=== PATIENT | male | born 1955 | race Caucasian/White ===

== ENCOUNTER 2022-05-04 13:46 | Emergency (ER) | payer MEDICARE, MEDICAID, SELFPAY ==
--- NOTE | ~2022-05-04 | CT_ITS ---
EXAMINATION: CT ABDOMEN AND PELVIS WITHOUT CONTRAST CLINICAL INFORMATION: Assess for splenic injury. Left shoulder pain COMPARISON: None TECHNIQUE: Multidetector volumetric imaging was performed from the superior aspect of the liver through the pubic symphysis. Sagittal and coronal reformatted images were obtained on the [employer] [facility] [employer] workstation. This CT examination was performed using dose optimization techniques as appropriate, variously including the following: *Automated exposure control *Adjustment of mA and/or kV according to patient size (this includes techniques or standardized protocols for targeted exams where dose is matched to indication/reason for exam; i.e. extremities or head) *Use of iterative reconstruction technique DLP: 711 mGy-cm FINDINGS: LUNG BASES: There is platelike atelectasis right lower lobe. Heart size is normal. LIVER, GALLBLADDER, AND BILIARY TREE: The liver is normal in size, shape, and attenuation. No focal hepatic lesion or biliary ductal dilatation is present. There are multiple radiopaque gallstones without wall thickening. PANCREAS: Unremarkable. SPLEEN: Unremarkable. ADRENAL GLANDS: Unremarkable. KIDNEYS AND URETERS: The kidneys are normal in size, shape, and attenuation. No hydronephrosis, hydroureter, or calculi seen. No perinephric stranding. BLADDER: The bladder is distended with slight higher attenuation of urine. No bladder wall thickening seen GASTROINTESTINAL TRACT: Scattered stool and gas is seen throughout the colon most prominent in the transverse and right colon. The small bowel loops are unremarkable. Appendix is normal caliber. ABDOMINAL WALL: No significant hernia is appreciated. LYMPH NODES: Normal. VASCULAR: Unremarkable. PELVIC VISCERA: The prostate gland is normal size with punctate central gland calcification. No free fluid. No abnormal pelvic or inguinal lymph nodes seen. Prominent bilateral inguinal canals containing fat is noted. OSSEOUS STRUCTURES: There are degenerative disc changes with vacuum disc phenomena T12-L1 and T11-T12 disc levels. Moderate bilateral L5-S1 and L4-L5 facet joint arthropathy. No aggressive lytic or sclerotic process seen. CT/CT abdomen pelvis wo IV con IMPRESSION: 1. No acute intra-abdominal process seen. 2. Cholelithiasis without wall thickening. Moderate constipation. No retroperitoneal or intraperitoneal hematoma or bleed. Fleischner guidelines were followed.
--- NOTE | ~2022-05-04 | XR_ITS ---
EXAMINATION: XR CHEST CLINICAL INFORMATION: Chest pain COMPARISON: None TECHNIQUE: 2 views of the chest were obtained. FINDINGS: The lungs are well-expanded and clear of acute pneumonic process. The heart size and pulmonary vascularity is normal. No gross bony abnormality seen. XR/XR chest 2V IMPRESSION: Unremarkable chest exam.
[2022-05-04 13:52] VITALS: BP 142/81; PULSE 110; RESP 18; TEMP 37.2; O2SAT 96; BMI 33.4
--- NOTE | 2022-05-04 13:56 | ECG_ITS ---
Test Reason : chest pain Blood Pressure : / mmHG Vent. Rate : 106 BPM Atrial Rate : 106 BPM P-R Int : 146 ms QRS Dur : 090 ms QT Int : 342 ms P-R-T Axes : 050 -53 089 degrees QTc Int : 454 ms Sinus tachycardia Left axis deviation Inferior infarct , age undetermined Cannot rule out Anterior infarct , age undetermined Abnormal ECG No previous ECGs available Referred By: Johnson Lemos Electronically Signed By:Michael Villa
--- NOTE | 2022-05-04 13:58 | ED.CHESTPAIN ---
HPI - Chest Pain General Chief Complaint: Chest Pain <Johnson Lemos MD - Last Filed: 05/04/22 14:04> Stated Complaint: Chest Pain R Arm Pain <Johnson Lemos MD - Last Filed: 05/04/22 14:04> Time Seen by Provider: 05/04/22 14:02 <Johnson Lemos MD - Last Filed: 05/04/22 14:04> Source: patient and old records reviewed <YULISSA Bertrand - Last Filed: 05/04/22 17:10> Mode of arrival: ambulatory <YULISSA Bertrand - Last Filed: 05/04/22 17:10> Limitations: no limitations <YULISSA Bertrand - Last Filed: 05/04/22 17:10> History of Present Illness HPI narrative: 67-year-old male with history of alcohol abuse, tobacco smoker, HTN, HLD, diabetes who presents to the ER for evaluation of substernal, burning and stiff chest pain that started last night at 19:30 and resolved on its own today at 04:00. He states that he often is getting left-sided shoulder pain that radiates under his left armpit and left upper chest. This occurs at nighttime and is worse when he lays on his left side. He denies any shortness of breath or nausea associated with this. He states last night the pain kept him up all most of the night until 04:00 when it resolved spontaneously. He is a poor historian. He states he drinks usually 12 beers per day. Last drink was this morning when he drink 3 beers. On arrival to the ER patient is diaphoretic. He denies any current chest pain. He states the pain is mostly in his shoulder and not his chest. He states he only came to the ER because his uncle convinced him to. <YULISSA Bertrand - Last Filed: 05/04/22 17:10> MD complaint: chest pain <YULISSA Bertrand - Last Filed: 05/04/22 17:10> Onset (ago): hour(s) <YULISSA Bertrand - Last Filed: 05/04/22 17:10> Timing of current episode: now resolved <YULISSA Bertrand - Last Filed: 05/04/22 17:10> Prior episodes: Yes <YULISSA Bertrand - Last Filed: 05/04/22 17:10> Onset: during rest <YULISSA Bertrand - Last Filed: 05/04/22 17:10> Pain location: left chest <YULISSA Bertrand - Last Filed: 05/04/22 17:10> Pain radiation: left arm <YULISSA Bertrand - Last Filed: 05/04/22 17:10> Severity: moderate <YULISSA Bertrand - Last Filed: 05/04/22 17:10> Quality: aching <YULISSA Bertrand - Last Filed: 05/04/22 17:10> Relieving factors: nothing <YULISSA Bertrand - Last Filed: 05/04/22 17:10> Exacerbating factors: nothing <YULISSA Bertrand - Last Filed: 05/04/22 17:10> Associated symptoms: diaphoresis <YULISSA Bertrand - Last Filed: 05/04/22 17:10> Treatment prior to arrival: none <YULISSA Bertrand - Last Filed: 05/04/22 17:10> Risk Factors Coronary artery disease risk factors: diabetes, smoking history, hyperlipidemia and hypertension <YULISSA Bertrand - Last Filed: 05/04/22 17:10> Related Data Home Medications: Previous Rx's Medication Instructions Recorded glipizide 5 mg tablet 5 mg PO DAILY #30 tabs 05/04/22 lisinopril 10 mg tablet 10 mg PO DAILY #30 tabs 05/04/22 <Johnson Lemos MD - Last Filed: 05/04/22 14:04> Allergies/Adverse Reactions: Allergies Allergy/AdvReac Type Severity Reaction Status Date / Time No Known Allergies Allergy Unverified 01/30/20 15:35 <Johnson Lemos MD - Last Filed: 05/04/22 14:04> Review of Systems Review of Systems: Constitutional: No Fever, No Chills ENT/Mouth: No sore throat, No Rhinorrhea, No Swallowing Difficulty Cardiovascular: + Chest Pain, No SOB, No Orthopnea, No Edema Respiratory: No Cough, No Sputum, No Wheezing, No dyspnea Gastrointestinal: No Nausea, No Vomiting, No Diarrhea, No abdominal Pain Genitourinary: No Dysuria, No Urinary Frequency, No Hematuria Musculoskeletal: + joint pain, + Myalgias Skin: No Skin Lesions, No rash Neuro: No Weakness, No Numbness, No Dizziness, No Headache Psych: No Anxiety/Panic, No Depression, No SI, No HI Heme/Lymph: No Bruising, No Lymphadenopathy Endocrine: No Polyuria, No Polydipsia <YULISSA Bertrand - Last Filed: 05/04/22 17:10> [facility] Social History Social History: Social History Alcohol intake: current Alcohol intake frequency: holidays/special occasions only Smoked in Last 30 Days: Yes Use of substances other than those prescribed or required for medical reasons: No Advance Directives: No <Johnson Lemos MD - Last Filed: 05/04/22 14:04> Physical Exam Vital Signs: Vital Signs: Last Vital Signs Temp 98.9 F 05/04/22 14:23 Pulse 102 H 05/04/22 14:23 Resp 15 05/04/22 14:23 BP 133/76 05/04/22 14:23 Pulse Ox 96 05/04/22 14:23 O2 Del Method 05/04/22 14:23 BMI result Body Mass Index 33.4 <Johnson Lemos MD - Last Filed: 05/04/22 14:04> Vital Signs: Last Vital Signs Temp 98.9 F 05/04/22 14:23 Pulse 102 H 05/04/22 14:23 Resp 15 05/04/22 14:23 BP 133/76 05/04/22 14:23 Pulse Ox 96 05/04/22 14:23 O2 Del Method 05/04/22 14:23 BMI result Body Mass Index 33.4 <YULISSA Bertrand - Last Filed: 05/04/22 17:10> Appearance: Alert. Oriented X3. Poorly kempt, diaphoretic on his forehead and nose. Eyes: Pupils equal, round and reactive to light. ENT: Pharynx normal. Neck: Normal inspection. Neck supple. CVS: Cardiac, heart rate 102, no appreciated murmur. Pulses normal. Respiratory: No respiratory distress. Breath sounds normal. Abdomen: Rotund Soft and nontender. +BS x4 Skin: Skin warm and dry. Normal skin color. Normal skin turgor. No rashes. Extremities: No lower extremity edema. Normal ROM of the left shoulder, nontender. NV intact distally. Neuro: Oriented X 3. No motor deficit. No sensory deficit. <YULISSA Bertrand - Last Filed: 05/04/22 17:10> Course Course Course Narrative: RME: 67-year-old male with history of diabetes, hypertension, high cholesterol, tobacco use disorder who presents emergency department for evaluation of chest pain and left arm pain. Patient states that the chest pain came on gradually yesterday at 19:30 hours. He states the pain was a constant, stiffness and heartburn like pain which was 7/10 at its worst. He states the pain resolved at 04:00 hours. Patient states he has been getting this chest pain frequently. He is here with his Uncle Tashi, the patient was fired by his providers and has been out of medications for several months. I ordered CBC, CMP, troponin, drug screen urine, alcohol, chest x-ray two view, EKG. Patient will be brought back to a room for his workup. <Johnson Lemos MD - Last Filed: 05/04/22 14:04> Reevaluation(s) Reevaluation #1: Patient seen and examined. He states that he has been getting this pain in his left shoulder on and off for about 4 weeks now. He states that occurs mostly at nighttime and is causing him difficulty sleeping. He states it is worse when he lays on his left side. He currently has no pain in his chest or left shoulder. He is denying pain in the chest at all and states that was all the left shoulder. He denies any associated shortness of breath or nausea. Upon examination patient is diaphoretic. He states he is always sweaty. He denies any current pain or shortness of breath. He states he drinks 3 alcoholic beverages this morning and usually drinks 12 in a day. His uncle is concerned about the amount of alcohol intake he has been engaging in. He has no interest in detox. He states he went to detox before and only lasted 10 days sober. He has no interest in sobriety. <YULISSA Bertrand - Last Filed: 05/04/22 17:10> Reevaluation #2: Troponin 5.6 inconsistent with ACS. Glucose 379 - SC insulin ordered. Refusing IV and fluids. Case d/w Dr. Gamez - patient poor historian. denies any trauma. will get CT scan to assess for possible splenic injury and possible referred pain from the spleen to left shoulder <YULISSA Bertrand - Last Filed: 05/04/22 17:10> Reevaluation #3: CT scan unremarkable, no splenic abnormality. HEART score is 4. recommending admission to the hospital but patient is adamantly refusing. we discussed risk of heart attack and and he accepts those risks. encouraged outpatient follow up with cardiology for evaluation of his recurring pains and he said he will think about it. patient will be discharged AMA. <YULISSA Bertrand - Last Filed: 05/04/22 17:10> Medications Administered Discontinued Medications Generic Name Dose Route Start Last Admin Trade Name Freq PRN Reason Stop Dose Admin Insulin Human Lispro 10 unit 05/04/22 14:46 05/04/22 15:09 Insulin Lispro 100 Unit/Ml 3 Ml Vial SUBCUT 05/04/22 14:47 10 unit ONCE ONE Administration <Johnson Lemos MD - Last Filed: 05/04/22 14:04> Medications Administered Discontinued Medications Generic Name Dose Route Start Last Admin Trade Name Freq PRN Reason Stop Dose Admin Insulin Human Lispro 10 unit 05/04/22 14:46 05/04/22 15:09 Insulin Lispro 100 Unit/Ml 3 Ml Vial SUBCUT 05/04/22 14:47 10 unit ONCE ONE Administration <YULISSA Bertrand - Last Filed: 05/04/22 17:10> Medical Decision Making Differential Diagnosis Differential Diagnoses: The differential diagnosis associated with the presentation includes <YULISSA Bertrand - Last Filed: 05/04/22 17:10> ACS, PE, MSK pain, GERD, splenic injury <YULISSA Bertrand - Last Filed: 05/04/22 17:10> Admission/Observation Consideration of admission/observation: Escalation of care including admission/observation considered <YULISSA Bertrand - Last Filed: 05/04/22 17:10> encouraged admission due to heart score and chest pain, patient refused <YULISSA Bertrand - Last Filed: 05/04/22 17:10> Lab Data MDM Lab Attestation statement: I reviewed the patient's lab results. <YULISSA Bertrand - Last Filed: 05/04/22 17:10> Result Diagrams: : 05/04/22 14:16 05/04/22 14:16 <Johnson Lemos MD - Last Filed: 05/04/22 14:04> Labs: Lab Results 05/04/22 05/04/22 05/04/22 Range/Units 14:16 14:16 14:16 WBC 7.1 (4.8-10.8) X10*3/uL RBC 5.20 (4.60-5.80) X10*6/uL Hgb 16.9 (14.0-18.0) g/dl Hct 46.0 (42.0-52.0) % MCV 88.5 (80.0-98.0) fL MCH 32.5 (27.0-33.0) pg MCHC 36.7 H (31.0-36.0) g/dl RDW 11.5 (11.0-16.0) % Plt Count 249 (160-400) X10*3/uL MPV 9.7 (9.4-12.4) fL Immature Gran % (Auto) 0.4 (0.0-0.4) % Neut % (Auto) 63.3 (45-73) % Lymph % (Auto) 29.3 (20-40) % [place] % (Auto) 6.3 (2-11) % Eos % (Auto) 0.3 (0-4) % Baso % (Auto) 0.4 (0-2) % Lymph # (Auto) 2.1 (1.2-4.9) X10*3/uL [place] # (Auto) 0.5 (0.1-1.2) X10*3/uL Eos # (Auto) 0.0 (0.0-0.4) X10*3/uL Baso # (Auto) 0.0 (0.0-0.2) X10*3/uL Abs Immat Gran (auto) 0.03 (0.00-0.03) X10*3/uL Absolute Neuts (auto) 4.5 (2.0-8.3) x10*3/uL Absolute Nucleated RBC 0.000 (0.0-0.012) X10*3/uL Nucleated RBC % (auto) 0.0 (0.0-0.2) /100WBC Sodium 132 L (135-145) mmol/L Potassium 3.8 (3.3-5.1) mmol/L Chloride 98 (96-108) mmol/L Carbon Dioxide 21 L (22-29) mmol/L Anion Gap 17 (12-20) BUN 13 (9-16) mg/dL Creatinine 0.86 (0.5-1.4) mg/dL Estim Creat Clear Calc 90.6 Estimated GFR > 60 Random Glucose 379 H* (60-115) mg/dL Calcium 9.9 (8.4-10.2) mg/dL Total Bilirubin 0.7 (0.0-1.0) mg/dL AST 21 (5-37) U/L ALT 41 H (0-40) U/L Alkaline Phosphatase 133 H (39-117) U/L Troponin I High Sens 5.6 (<3.5-35.0) ng/L Total Protein 6.9 (6.5-8.0) g/dL Albumin 4.5 (3.5-5.0) g/dL Ethyl Alcohol 22 mg/dL Influenza Type A (PCR) (Negative) Influenza Type B (PCR) (Negative) RSV RNA Qual (PCR) (Negative) SARS-CoV-2 RNA (RT-PCR) (Negative) 05/04/22 Range/Units 14:16 WBC (4.8-10.8) X10*3/uL RBC (4.60-5.80) X10*6/uL Hgb (14.0-18.0) g/dl Hct (42.0-52.0) % MCV (80.0-98.0) fL MCH (27.0-33.0) pg MCHC (31.0-36.0) g/dl RDW (11.0-16.0) % Plt Count (160-400) X10*3/uL MPV (9.4-12.4) fL Immature Gran % (Auto) (0.0-0.4) % Neut % (Auto) (45-73) % Lymph % (Auto) (20-40) % [place] % (Auto) (2-11) % Eos % (Auto) (0-4) % Baso % (Auto) (0-2) % Lymph # (Auto) (1.2-4.9) X10*3/uL [place] # (Auto) (0.1-1.2) X10*3/uL Eos # (Auto) (0.0-0.4) X10*3/uL Baso # (Auto) (0.0-0.2) X10*3/uL Abs Immat Gran (auto) (0.00-0.03) X10*3/uL Absolute Neuts (auto) (2.0-8.3) x10*3/uL Absolute Nucleated RBC (0.0-0.012) X10*3/uL Nucleated RBC % (auto) (0.0-0.2) /100WBC Sodium (135-145) mmol/L Potassium (3.3-5.1) mmol/L Chloride (96-108) mmol/L Carbon Dioxide (22-29) mmol/L Anion Gap (12-20) BUN (9-16) mg/dL Creatinine (0.5-1.4) mg/dL Estim Creat Clear Calc Estimated GFR Random Glucose (60-115) mg/dL Calcium (8.4-10.2) mg/dL Total Bilirubin (0.0-1.0) mg/dL AST (5-37) U/L ALT (0-40) U/L Alkaline Phosphatase (39-117) U/L Troponin I High Sens (<3.5-35.0) ng/L Total Protein (6.5-8.0) g/dL Albumin (3.5-5.0) g/dL Ethyl Alcohol mg/dL Influenza Type A (PCR) NEGATIVE (Negative) Influenza Type B (PCR) NEGATIVE (Negative) RSV RNA Qual (PCR) NEGATIVE (Negative) SARS-CoV-2 RNA (RT-PCR) NEGATIVE (Negative) <Johnson Lemos MD - Last Filed: 05/04/22 14:04> Lab Results 05/04/22 05/04/22 05/04/22 Range/Units 14:16 14:16 14:16 WBC 7.1 (4.8-10.8) X10*3/uL RBC 5.20 (4.60-5.80) X10*6/uL Hgb 16.9 (14.0-18.0) g/dl Hct 46.0 (42.0-52.0) % MCV 88.5 (80.0-98.0) fL MCH 32.5 (27.0-33.0) pg MCHC 36.7 H (31.0-36.0) g/dl RDW 11.5 (11.0-16.0) % Plt Count 249 (160-400) X10*3/uL MPV 9.7 (9.4-12.4) fL Immature Gran % (Auto) 0.4 (0.0-0.4) % Neut % (Auto) 63.3 (45-73) % Lymph % (Auto) 29.3 (20-40) % [place] % (Auto) 6.3 (2-11) % Eos % (Auto) 0.3 (0-4) % Baso % (Auto) 0.4 (0-2) % Lymph # (Auto) 2.1 (1.2-4.9) X10*3/uL [place] # (Auto) 0.5 (0.1-1.2) X10*3/uL Eos # (Auto) 0.0 (0.0-0.4) X10*3/uL Baso # (Auto) 0.0 (0.0-0.2) X10*3/uL Abs Immat Gran (auto) 0.03 (0.00-0.03) X10*3/uL Absolute Neuts (auto) 4.5 (2.0-8.3) x10*3/uL Absolute Nucleated RBC 0.000 (0.0-0.012) X10*3/uL Nucleated RBC % (auto) 0.0 (0.0-0.2) /100WBC Sodium 132 L (135-145) mmol/L Potassium 3.8 (3.3-5.1) mmol/L Chloride 98 (96-108) mmol/L Carbon Dioxide 21 L (22-29) mmol/L Anion Gap 17 (12-20) BUN 13 (9-16) mg/dL Creatinine 0.86 (0.5-1.4) mg/dL Estim Creat Clear Calc 90.6 Estimated GFR > 60 Random Glucose 379 H* (60-115) mg/dL Calcium 9.9 (8.4-10.2) mg/dL Total Bilirubin 0.7 (0.0-1.0) mg/dL AST 21 (5-37) U/L ALT 41 H (0-40) U/L Alkaline Phosphatase 133 H (39-117) U/L Troponin I High Sens 5.6 (<3.5-35.0) ng/L Total Protein 6.9 (6.5-8.0) g/dL Albumin 4.5 (3.5-5.0) g/dL Ethyl Alcohol 22 mg/dL Influenza Type A (PCR) (Negative) Influenza Type B (PCR) (Negative) RSV RNA Qual (PCR) (Negative) SARS-CoV-2 RNA (RT-PCR) (Negative) 05/04/22 Range/Units 14:16 WBC (4.8-10.8) X10*3/uL RBC (4.60-5.80) X10*6/uL Hgb (14.0-18.0) g/dl Hct (42.0-52.0) % MCV (80.0-98.0) fL MCH (27.0-33.0) pg MCHC (31.0-36.0) g/dl RDW (11.0-16.0) % Plt Count (160-400) X10*3/uL MPV (9.4-12.4) fL Immature Gran % (Auto) (0.0-0.4) % Neut % (Auto) (45-73) % Lymph % (Auto) (20-40) % [place] % (Auto) (2-11) % Eos % (Auto) (0-4) % Baso % (Auto) (0-2) % Lymph # (Auto) (1.2-4.9) X10*3/uL [place] # (Auto) (0.1-1.2) X10*3/uL Eos # (Auto) (0.0-0.4) X10*3/uL Baso # (Auto) (0.0-0.2) X10*3/uL Abs Immat Gran (auto) (0.00-0.03) X10*3/uL Absolute Neuts (auto) (2.0-8.3) x10*3/uL Absolute Nucleated RBC (0.0-0.012) X10*3/uL Nucleated RBC % (auto) (0.0-0.2) /100WBC Sodium (135-145) mmol/L Potassium (3.3-5.1) mmol/L Chloride (96-108) mmol/L Carbon Dioxide (22-29) mmol/L Anion Gap (12-20) BUN (9-16) mg/dL Creatinine (0.5-1.4) mg/dL Estim Creat Clear Calc Estimated GFR Random Glucose (60-115) mg/dL Calcium (8.4-10.2) mg/dL Total Bilirubin (0.0-1.0) mg/dL AST (5-37) U/L ALT (0-40) U/L Alkaline Phosphatase (39-117) U/L Troponin I High Sens (<3.5-35.0) ng/L Total Protein (6.5-8.0) g/dL Albumin (3.5-5.0) g/dL Ethyl Alcohol mg/dL Influenza Type A (PCR) NEGATIVE (Negative) Influenza Type B (PCR) NEGATIVE (Negative) RSV RNA Qual (PCR) NEGATIVE (Negative) SARS-CoV-2 RNA (RT-PCR) NEGATIVE (Negative) <YULISSA Bertrand - Last Filed: 05/04/22 17:10> Independent Interpretation I performed an independent interpretation of an: EKG <YULISSA Bertrand Last Filed: 05/04/22 17:10> Interpretation: Sinus tachycardia ventricular rate 106 beats per minute, left axis deviation, VT intervals normal. No ST segment elevations or depressions. <YULISSA Bertrand Last Filed: 05/04/22 17:10> Independent Historian Clinical information obtained from an independent historian. History obtained from or confirmed by: Other (uncle tashi ) <YULISSA Bertrand Last Filed: 05/04/22 17:10> uncle reports his decline over the last several months with increase in ETOH consumption <YULISSA Bertrand Last Filed: 05/04/22 17:10> Scores Heart Score History: -0- slightly suspicious <YULISSA Bertrand - Last Filed: 05/04/22 17:10> ECG: -0- normal <YULISSA Bertrand - Last Filed: 05/04/22 17:10> Age: -2- > or = 65 <YULISSA Bertrand - Last Filed: 05/04/22 17:10> Risk factory: -2- 3 or more risk factors or treated atherosclerosis <YULISSA Bertrand - Last Filed: 05/04/22 17:10> Troponin: -0- < or = normal limit <YULISSA Bertarnd - Last Filed: 05/04/22 17:10> Score: 4 <YULISSA Bertrand - Last Filed: 05/04/22 17:10> Risk: 16.6% <YULISSA Bertrand - Last Filed: 05/04/22 17:10> Wells PE Heart rate > 100 p/min: 1.5 <YULISSA Bertrand - Last Filed: 05/04/22 17:10> Score: 1.5 <YULISSA Bertrand - Last Filed: 05/04/22 17:10> 2-tier Risk: unlikely risk (5%) <YULISSA Bertrand - Last Filed: 05/04/22 17:10> 3-tier Risk: low risk (3.4%) <YULISSA Bertrand - Last Filed: 05/04/22 17:10> Critical Care Time Critical Care Time Critical Care Time: No <YULISSA Bertrand - Last Filed: 05/04/22 17:10> Discharge Plan Discharge Clinical Impression: Atypical chest pain <Johnson Lemos MD - Last Filed: 05/04/22 14:04> Patient Disposition: Left Against Medical Advice <Johnson Lemos MD - Last Filed: 05/04/22 14:04> Additional Instructions: It was recommended that you stay in the hospital for further monitoring and workup however you declined. Recommend detox from alcohol. One month of your blood pressure and diabetic medications have been sent to your pharmacy. Recommend Cardiology follow up. Call the office to arrange for an appointment. If you develop new or worsening symptoms call 911 or come back to the ER for further evaluation. <Johnson Lemos MD - Last Filed: 05/04/22 14:04> Prescriptions: New lisinopril 10 mg tablet 10 mg PO DAILY Qty: 30 0RF glipizide 5 mg tablet 5 mg PO DAILY Qty: 30 0RF <Johnson Lemos MD - Last Filed: 05/04/22 14:04> Referrals: [facility] [place] Cardiovascular Services [Provider Group] (chest pain radiating to left shoulder) <Johnson Lemos MD - Last Filed: 05/04/22 14:04> Stand Alone Forms: Against Medical Advice <Johnson Lemos MD - Last Filed: 05/04/22 14:04>
[2022-05-04 14:22] LABS: MANUAL DIFF FLAG NO
[2022-05-04 14:23] VITALS: BP 133/76; PULSE 102; RESP 15; TEMP 37.2; O2SAT 96
[2022-05-04 14:23] LABS: Basophils Percent Auto 0.4 % (0-2); Eosinophils Percent Auto 0.3 % (0-4); Hemoglobin 16.9 g/dl (14.0-18.0); Imm Gran Abs Auto 0.03 X10*3/uL (0.00-0.03); Imm Gran Pct Auto 0.4 % (0.0-0.4); Lymphocytes Absolute Auto 2.1 X10*3/uL (1.2-4.9); Lymphocytes Percent Auto 29.3 % (20-40); Mean Corpuscular HGB Conc 36.7 g/dl (31.0-36.0); Mean Corpuscular Hemoglobin 32.5 pg (27.0-33.0); Mean Corpuscular Volume 88.5 fL (80.0-98.0); Mean Platelet Volume 9.7 fL (9.4-12.4); Monocytes Absolute Auto 0.5 X10*3/uL (0.1-1.2); Monocytes Percent Auto 6.3 % (2-11); Neutrophils Absolute Auto 4.5 x10*3/uL (2.0-8.3); Neutrophils Percent Auto 63.3 % (45-73); Platelet Count 249 X10*3/uL (160-400); Red Cell Distribution Width 11.5 % (11.0-16.0); White Blood Count 7.1 X10*3/uL (4.8-10.8)
[2022-05-04 14:27] VITALS: PULSE 105
[2022-05-04 14:46] LABS: Troponin-I High Sensitivity 5.6 ng/L (<3.5-35.0)
[2022-05-04 14:48] LABS: Blood Urea Nitrogen 13 mg/dL (9-16)
[2022-05-04 14:55] LABS: Alanine Aminotransferase 41 U/L (0-40); Albumin Level 4.5 g/dL (3.5-5.0); Alkaline Phosphatase 133 U/L (39-117); Anion Gap 17 (12-20); Aspartate Amino Transferase 21 U/L (5-37); Bilirubin Total 0.7 mg/dL (0.0-1.0); Calcium 9.9 mg/dL (8.4-10.2); Carbon Dioxide 21 mmol/L (22-29); Chloride 98 mmol/L (96-108); Creatinine Clr Calc Pharmacy 90.6; Estimated Glomerular Filt Rate > 60; Ethanol 22 mg/dL; Glucose Random 379 mg/dL (60-115); Potassium 3.8 mmol/L (3.3-5.1); Sodium 132 mmol/L (135-145); Total Protein 6.9 g/dL (6.5-8.0)
[2022-05-04 15:03] LABS: Influenza A PCR NEGATIVE (Negative); Influenza B PCR NEGATIVE (Negative); Resp Syncy Virus RNA Qual PCR NEGATIVE (Negative); SARS COV2 PCR INHOUSE NEGATIVE (Negative)
[2022-05-04] MEDS: Insulin Lispro 100 UNIT/ML 3 ML VIAL 10 UNIT SUBCUT (15:09)
== END 2022-05-04 17:11 | disposition left against medical advice (07) ==
PROVIDERS: Emergency Provider Emergency Medicine Emergency Medical Services
DX: R07.89 Other chest pain (principal); F10.10 Alcohol abuse, uncomplicated; Y90.1 Blood alcohol level of 20-39 mg/100 ml; Z20.822 Contact with and (suspected) exposure to COVID-19; I10 Essential (primary) hypertension; E11.9 Type 2 diabetes mellitus without complications; E78.5 Hyperlipidemia, unspecified; F17.200 Nicotine dependence, unspecified, uncomplicated
CPT/HCPCS: 0241U; 36415; 71046; 74176; 80053; 82077; 84484; 85025; 93005; 99284; 99285

== ENCOUNTER 2022-07-28 16:48 | Emergency (ER) | payer MEDICARE, MEDICAID, SELFPAY ==
[2022-07-28 17:03] VITALS: BP 131/69; PULSE 97; RESP 18; TEMP 36; O2SAT 95; BMI 32.3
--- NOTE | 2022-07-28 19:20 | PC.NURSE ---
pt&ox3, vss, ambulates independently with a steady gait to the restroom. pt pending ED provider.
--- NOTE | 2022-07-28 20:46 | ED_ITS ---
HPI - General Adult General Chief complaint: ETOH/Substance Use Stated complaint: ETOH Time Seen by Provider: 07/28/22 20:38 Source: patient Mode of arrival: EMS Limitations: no limitations History of Present Illness HPI narrative: 67-year-old male who presents emergency department for evaluation of dizziness and back pain. Patient states that he woke up this morning with pain in his back between his shoulder blades. He states that lasted approximately 10 minutes then resolved. He states that he was at a bar drinking beers. He believes that he drink approximately 10 beers. He states that then felt light headed and dizzy. he reported to the [employer] that was having chest pain but last and he denied this pain. That he was having pain in his back and he points to his thoracic and lower back pain. States the pain was a intermittent, sharp pain which was worse with. movement. He states he did feel lightheaded and dizzy but he denies nausea, vomiting, fever, chills, abdominal pain, dark tarry stools arm blood per rectum. He states that since getting to the emergency department he has been feeling fine and he wants to go home. He does not want any further testing. He states that in the past doctors have put him on all the wrong medicines and they have made him sick and he does not want any medications at this time. Related Data Previous Rx's Medication Instructions Recorded glipizide 5 mg tablet 5 mg PO DAILY #30 tabs 05/04/22 lisinopril 10 mg tablet 10 mg PO DAILY #30 tabs 05/04/22 Allergies Allergy/AdvReac Type Severity Reaction Status Date / Time No Known Allergies Allergy Verified 07/28/22 17:01 Review of Systems Review of Systems: Yes all other systems are reviewed and are negative [facility] Past Medical History [facility] Narrative: Past medical history: diabetes mellitus. Social history: He states that he smokes 1-2 packs of cigarettes per day times many years. He states that he drinks alcohol daily. He denies drug use. Social History Social History Alcohol intake: current Alcohol intake frequency: holidays/special occasions only Advance Directives: No Advance Directives Information Provided: No Physical Exam ED Vital Signs: Vital Signs - 24 hr 07/28/22 17:03 Temperature 96.8 F Pulse Rate 97 Respiratory Rate 18 Blood Pressure 131/69 Pulse Oximetry 95 Oxygen Delivery Method Room Air BMI result Body Mass Index 32.3 Const Other: Awake alert male patient, disheveled, pleasant, cooperative in no distress HENMT Head: Yes normal to inspection, Yes normocephalic and Yes atraumatic Ears: external ears normal General nose exam: Normal external nose present Face and sinus: Yes normal facial exam Mouth: Normal oral and palatal mucosa present Throat: Yes posterior oropharynx normal Eyes General: appearance normal, both eyes and all related structures Pupils: Equal, round and reactive pupils present Neck Neck: Yes normal visual inspection, Yes no lymphadenopathy, Yes trachea midline and Yes supple Chest Chest palpation & inspection: normal inspection of the chest and normal palpation of entire chest wall Resp Effort & Inspection: normal respiratory effort and able to speak in complete sentences Auscultation: clear to auscultation bilaterally Cardio Rate: regular rate Rhythm: regular rhythm Heart sounds: S1 normal heart sound present, S2 normal heart sound present and no murmurs GI Inspection: Yes normal to inspection Palpation (GI): Soft to palpation, nontender and no guarding Auscultation: normal bowel sounds General: Yes no CVA tenderness Back/Spine/Pelvis Back: no CVA tenderness Skin General skin exam: no rashes or lesions noted Neuro Cranial nerves: Yes CN's II-XII intact bilaterally and Yes Equal, round and reactive pupils present Cognition (Neuro): normal cognition Motor exam (neuro): 5/5 motor strength present throughout Extrem General: Yes normal to inspection Psych Appearance: grossly normal Speech and movement: Normal speech and movement present Affect: normal affect Attitude: cooperative Thought process: Normal thought process present Thought content: Normal thought content present Course Course Course Narrative: 67-year-old male who presents emergency department for evaluation back pain, and dizziness. Patient states he woke up with back pain this morning at resolved. Patient states that he was in a bar drinking when he felt dizzy and developed back pain and became dizzy. He did report chest pain to the paramedics but denied chest pain during my interview. Patient states he is feeling better and he does not want any testing at this time. I did tell the patient that we should at least get an EKG on him but he refused at this time he just wants to go home. Patient was advised to continue taking his medications as prescribed by his provider and to return to the emergency department if his symptoms get worse pain Discharge Plan Discharge Clinical Impression: Back pain, Dizziness, Alcohol use Patient Disposition: Home, Self-Care Additional Instructions: At this time, I do not have a clear cause for your symptoms however you symptoms of resolved in your feeling better therefore I am discharging her to home. Continue taking medications as prescribed by your doctor. Follow-up with your doctor in 2 days. Please return to the emergency department if your symptoms get worse or if you develop any symptoms that are concerning to you. Prescriptions: No Action lisinopril 10 mg tablet 10 mg PO DAILY Qty: 30 0RF glipizide 5 mg tablet 5 mg PO DAILY Qty: 30 0RF
--- NOTE | 2022-07-28 20:56 | PC.NURSE ---
pt a&o, no sob or chest pain, Reviewed discharge instructions, pt verbalized understanding, pt had a steady gait. Notified JEFERSON Briones
== END 2022-07-28 20:58 | disposition home or self-care (01) ==
PROVIDERS: Emergency Provider Emergency Medicine Emergency Medical Services
DX: M54.6 Pain in thoracic spine (principal); R42 Dizziness and giddiness; F10.90 Alcohol use, unspecified, uncomplicated; Y90.9 Presence of alcohol in blood, level not specified
CPT/HCPCS: 99282; 99283